=== PATIENT | female | born 1965 | race Caucasian/White ===

== ENCOUNTER 2017-03-01 17:49 | Emergency (ER) | payer OTHER ==
[~2017-03-01] VITALS: Ht 165.1 cm; Wt 85.7 kg
[2017-03-01 17:59] VITALS: BP 148/93
== END 2017-03-01 18:31 | disposition left against medical advice (07) ==
LOC: ED 17:49
DX: Z53.21 Procedure and treatment not carried out due to patient leaving prior to being seen by health care provider (principal)